=== PATIENT | male | born 1975 | race Hispanic/Latino ===

== ENCOUNTER 2019-11-03 | Emergency (ER) | payer SELFPAY ==
[2019-11-03] MEDS ORDERED: BUSPAR5 MG PO (23:25)
[2019-11-04] MEDS ORDERED: CEPHALEXIN500 M1 PO (00:15)
== END 2019-11-04 00:37 | disposition home or self-care (01) | DRG 153 ==
DX: J06.9 Acute upper respiratory infection, unspecified (principal)